=== PATIENT | male | born 2000 | race Caucasian/White ===

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

== ENCOUNTER 2023-10-18 08:49 | Emergency (ER) | payer OTHER ==
[~2023-10-18] VITALS: Ht 175.3 cm; Wt 57.2 kg
[2023-10-18 09:14] LABS: BASOPHILS 0.4 % (0-2); EOSINOPHILS 0.9 % (0-6); HEMATOCRIT 45.8 % (35.0-50.0); HEMOGLOBIN 15.2 g/dL (12.0-18.0); LYMPHOCYTES 12.7 % (24-44); MCH 29.5 (27-36); MCHC 33.2 g/dl (30-36); MONOCYTES 4.8 % (0-12); NEUTROPHILS 81.2 % (39-80); PLATELET COUNT 365 K/uL (140-440); RBC 5.15 M/ul (4.3-5.7); RDW 12.6 (10.5-15.0)
[2023-10-18] MEDS ORDERED: SODIUM CHLORIDE 0.9% 1,000 ML IV PRN (09:15)
[2023-10-18] MEDS ORDERED: ondansetron HCL 4 MG/2 ML VIAL IV ONE (09:15)
[2023-10-18 09:34] LABS: ALBUMIN 4.5 g/dL (3.4-5.0); ALBUMIN/GLOBULIN RATIO 1.41 (1.1-2.4); ANION GAP 16.7 (7-21); BILIRUBIN, TOTAL 1.8 ng/dL (0.2-1.0); BUN/CREATININE RATIO 10.71 (6.0-28.6); CALCIUM 9.4 mg/dL (8.5-10.1); CREATININE, SERUM 1.12 mg/dL (0.70-1.30); MAGNESIUM 1.8 mg/dL (1.8-2.4); POTASSIUM 3.7 mmol/L (3.5-5.1); PROTEIN, TOTAL 7.7 g/dL (6.4-8.2)
[2023-10-18] MEDS ORDERED: CARAFATE1 GM PO (09:35)
[2023-10-18] MEDS ORDERED: OMEPRAZOLE20 MG PO (09:35)
[2023-10-18] MEDS ORDERED: METOCLOPRAMIDE HCL 10 MG/2 ML SDV IV ONE (10:00)
[2023-10-18] MEDS ORDERED: LIDOCAINE & ANTACID 35 ML BTL PO ONE (10:15)
[2023-10-18 10:39] VITALS: BP 117/82
== END 2023-10-18 10:41 | disposition home or self-care (01) ==
LOC: ED 08:49
PROVIDERS: Emergency Medicine
DX: K29.70 Gastritis, unspecified, without bleeding (principal)
CPT/HCPCS: 36415; 80053; 83735; 85025; 96361; 96374; 96375; 99284-25; J2405; J2765; J7030

== ENCOUNTER 2023-10-18 16:02 | Emergency (ER) | payer OTHER ==
[~2023-10-18] VITALS: Ht 175.3 cm; Wt 50.3 kg
[~2023-10-18 16:02] MED LIST: CARAFATE1 GM PO; OMEPRAZOLE20 MG PO
--- OUTSIDE RECORDS SUMMARY | 2023-10-18 16:03 | XMS ---
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 Security Manager Cardiovascular Events No recent Security Events currently on file CRITERIA MET - [facility] [place] [facility] - 2 Visits in 30 Days CARE PROVIDERS -, [facility] Dentist: Electronic Industrial Controls Mechanic [facility] PHONE: [phone] -, Lisa- Dentist: Electronic Industrial Controls Mechanic Current [facility] Dental [facility] PHONE: [phone] WILMAR [facility]: [facility] Health [facility] PHONE: [phone] DANIEL TAYLOR Nurse Practitioner: Family Current PHONE: Unknown Janeen has no Care Guidelines for this patient. [place] VISIT COUNT (12 MO.) 2 TRACI Davis TOTAL 2 NOTE: Visits indicate total known visits. ED/UCC VISIT TRACKING (12 MO.) 10/18/2023 16:02 TRACI Mendez [place] TYPE: Emergency COMPLAINT: - VOMITING 10/18/2023 08:51 TRACI Mendez [place] TYPE: Emergency COMPLAINT: - VOMITING BLOOD INPATIENT VISIT TRACKING (12 MO.) No inpatient visits to display in this time frame [id number]
[2023-10-18] MEDS ORDERED: METOCLOPRAMIDE HCL 10 MG/2 ML SDV IM ONE (16:30)
[2023-10-18] MEDS ORDERED: ondansetron HCL 4 MG TAB PO ONE (16:30)
[2023-10-18] MEDS ORDERED: SODIUM CHLORIDE 0.9% 1,000 ML IV PRN (17:15)
[2023-10-18] MEDS ORDERED: diazePAM 10 MG/2 ML SYR IV ONE (17:15)
[2023-10-18] MEDS ORDERED: ondansetron HCL 4 MG/2 ML VIAL IV ONE (17:15)
[2023-10-18] MEDS ORDERED: HALOPERIDOL LACTATE 5 MG/ML VIAL IV ONE (18:30)
[2023-10-18 19:17] VITALS: BP 102/61
== END 2023-10-18 19:17 | disposition home or self-care (01) ==
LOC: ED 16:02
DX: R11.2 Nausea with vomiting, unspecified (principal); Z79.899 Other long term (current) drug therapy
CPT/HCPCS: 36415; 83690; 96361; 96374; 96375; 99284-25; A9270; J1630; J2405; J2765; J3360; J7030

== ENCOUNTER 2023-11-23 12:58 | Emergency (ER) | payer OTHER ==
[~2023-11-23] VITALS: Ht 175.3 cm; Wt 48.4 kg
[2023-11-23] MEDS ORDERED: ondansetron HCL 4 MG/2 ML VIAL IV ONE (13:15)
[2023-11-23] MEDS ORDERED: SODIUM CHLORIDE 0.9% 1,000 ML IV ONE (13:15)
[2023-11-23 13:47] LABS: ALBUMIN 5.8 g/dL (3.4-5.0); ALBUMIN/GLOBULIN RATIO 1.71 (1.1-2.4); ANION GAP 24.1 (7-21); BILIRUBIN, TOTAL 2.5 ng/dL (0.2-1.0); BUN/CREATININE RATIO 11.18 (6.0-28.6); CALCIUM 11.5 mg/dL (8.5-10.1); CREATININE, SERUM 1.52 mg/dL (0.70-1.30); POTASSIUM 4.1 mmol/L (3.5-5.1); PROTEIN, TOTAL 9.2 g/dL (6.4-8.2)
[2023-11-23 13:48] LABS: MCH 29.6 (27-36); PLATELET COUNT 504 K/uL (140-440); RDW 12.6 (10.5-15.0)
[2023-11-23 13:49] LABS: BASOPHILS 0.2 % (0-2); HEMATOCRIT 50.4 % (35.0-50.0); HEMOGLOBIN 17.2 g/dL (12.0-18.0); MCV 87.1 fl (81-99); MONOCYTES 7.2 % (0-12); NEUTROPHILS 88.6 % (39-80); RBC 5.79 M/ul (4.3-5.7)
[2023-11-23 14:06] LABS: LYMPHOCYTES, MANUAL DIFF 6; MONOCYTES, MANUAL DIFF 9; NEUTROPHILS, MANUAL DIFF 85
[2023-11-23] MEDS ORDERED: droPERidol 5 MG/2 ML VIAL IV ONE (14:30)
[2023-11-23] MEDS ORDERED: SODIUM CHLORIDE 0.9% 1,000 ML IV PRN (14:30)
[2023-11-23 15:46] LABS: BILIRUBIN, URINE NEGATIVE (negative); BLOOD/HGB, URINE NEGATIVE (Negative); KETONE, URINE SMALL (Negative); LEUK ESTERASE, URINE NEGATIVE (negative); NITRITE, URINE NEGATIVE (negative); PH, URINE 8.5 (5-7)
[2023-11-23 16:01] LABS: AMPHETAMINES, URINE NEGATIVE (NEGATIVE); BARBITURATES, URINE NEGATIVE (NEGATIVE); BENZODIAZEPINE, URINE NEGATIVE (NEGATIVE); BUPRENORPHINE, URINE NEGATIVE (NEGATIVE); CANNABINOID, URINE POSITIVE (NEGATIVE); COCAINE, URINE NEGATIVE (NEGATIVE); ECSTASY, URINE NEGATIVE (NEGATIVE); FENTANYL, URINE NEGATIVE (NEGATIVE); METHADONE, URINE NEGATIVE (NEGATIVE); OPIATES, URINE NEGATIVE (NEGATIVE); OXYCODONE, URINE NEGATIVE (NEGATIVE); PHENCYCLIDINE, URINE NEGATIVE (NEGATIVE)
[2023-11-23 16:53] LABS: BASOPHILS 0.1 % (0-2); EOSINOPHILS 0.3 % (0-6); HEMATOCRIT 41.6 % (35.0-50.0); HEMOGLOBIN 14.2 g/dL (12.0-18.0); LYMPHOCYTES 2.2 % (24-44); MCH 29.8 (27-36); MCHC 34.1 g/dl (30-36); MCV 87.5 fl (81-99); MONOCYTES 5.3 % (0-12); NEUTROPHILS 92.1 % (39-80); PLATELET COUNT 295 K/uL (140-440); RBC 4.75 M/ul (4.3-5.7); RDW 12.7 (10.5-15.0)
[2023-11-23] MEDS ORDERED: ONDANSETRON ODT8 MG TL (17:31)
[2023-11-23 17:35] VITALS: BP 119/67
[2023-11-24] MEDS ORDERED: PEPCID20 MG PO (03:32)
== END 2023-11-23 17:35 | disposition home or self-care (01) ==
LOC: ED 12:58
PROVIDERS: Emergency Medicine
DX: R11.2 Nausea with vomiting, unspecified (principal); F12.90 Cannabis use, unspecified, uncomplicated; E86.0 Dehydration; Z79.899 Other long term (current) drug therapy
CPT/HCPCS: 36415; 74176; 80053; 80307; 81003; 83690; 85007; 85025; 85060; 96374; 96375; 99284-25; G0480; J1790; J2405; J7030

== ENCOUNTER 2023-11-24 00:59 | Emergency (ER) | payer OTHER ==
[~2023-11-24] VITALS: Ht 175.3 cm; Wt 49.8 kg
--- OUTSIDE RECORDS SUMMARY | 2023-11-24 01:00 | XMS ---
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 Events No recent Security Events currently on file CRITERIA MET - [facility] - 2 Visits in 30 Days CARE PROVIDERS -, [facility] Dentist: Head Golf Professional [facility] PHONE: [phone] -, Lisa- Dentist: Head Golf Professional Current [facility] Dental [facility] PHONE: [phone] WILMAR [facility]/[place]: [facility] Health [facility] PHONE: [phone] DANIEL TAYLOR Nurse Practitioner: Family Current PHONE: Unknown Janeen has no Care Guidelines for this patient. [place] VISIT COUNT (12 MO.) 4 TRACI Davis TOTAL 4 NOTE: Visits indicate total known visits. ED/UCC VISIT TRACKING (12 MO.) 11/24/2023 00:59 TRACI Mendez [place] TYPE: Emergency COMPLAINT: - VOMITING 11/23/2023 12:58 TRACI [place] Tanya [place] TYPE: Emergency COMPLAINT: - ABDOMINAL PAIN 10/18/2023 16:02 TRACI [place] TYPE: Emergency COMPLAINT: - VOMITING DIAGNOSES: - Nausea with vomiting, unspecified - Other site operations manager (current) drug therapy - Unspecified abdominal pain 10/18/2023 08:51 TRACI [place] Tanya Jones [place] TYPE: Emergency COMPLAINT: - VOMITING BLOOD DIAGNOSES: - Gastritis, unspecified, without bleeding - Hematemesis - Nausea with vomiting, unspecified INPATIENT VISIT TRACKING (12 MO.) No inpatient visits to display in this time frame [id number]
[2023-11-24] MEDS ORDERED: droPERidol 5 MG/2 ML VIAL IV ONE (01:30)
[2023-11-24] MEDS ORDERED: LACTATED RINGER'S 1,000 ML IV ONE ×2 (01:30→02:45)
[2023-11-24] MEDS ORDERED: FAMOTIDINE 20 MG/ 2 ML VIAL IV ONE (01:30)
[2023-11-24 03:45] VITALS: BP 118/72
== END 2023-11-24 03:49 | disposition home or self-care (01) ==
LOC: ED 00:59
DX: R11.2 Nausea with vomiting, unspecified (principal); E86.0 Dehydration
CPT/HCPCS: 96361; 96374; 96375; 99283-25; J1790; J7121

== ENCOUNTER 2023-11-27 15:03 | Emergency (ER) | payer OTHER ==
[~2023-11-27] VITALS: Ht 175.3 cm; Wt 48.2 kg
[~2023-11-27 15:03] MED LIST changes: +ONDANSETRON ODT8 MG TL; +PEPCID20 MG PO
--- OUTSIDE RECORDS SUMMARY | 2023-11-27 15:04 | XMS ---
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 Security Bench Molder Events No recent Security Events currently on file CRITERIA MET - [facility] - 2 Visits in 30 Days CARE PROVIDERS -, [facility] Dentist: Disability Aide [facility] PHONE: [phone] -, Lisa- Dentist: Disability Aide Current [facility] PHONE: [phone] WILMAR [facility]/[place]: [facility] Health [facility] PHONE: [phone] DANIEL TAYLOR Nurse Practitioner: Family Current PHONE: Unknown Janeen has no Care Guidelines for this patient. [place] VISIT COUNT (12 MO.) 5 TRACI Davis TOTAL 5 NOTE: Visits indicate total known visits. ED/UCC VISIT TRACKING (12 MO.) 11/27/2023 15:04 TRACI Mendez [place] TYPE: Emergency COMPLAINT: - EYE PROBLEM 11/24/2023 00:59 TRACI [place] Tanya Jones [place] TYPE: Emergency COMPLAINT: - VOMITING DIAGNOSES: - Dehydration - Nausea with vomiting, unspecified 11/23/2023 12:58 TRACI [place] TYPE: Emergency COMPLAINT: - ABDOMINAL PAIN DIAGNOSES: - Cannabis use, unspecified, uncomplicated - Dehydration - Nausea with vomiting, unspecified - Other termite control representative (current) drug therapy 10/18/2023 16:02 TRACI [place] TYPE: Emergency COMPLAINT: - VOMITING DIAGNOSES: - Nausea with vomiting, unspecified - Other termite control representative (current) drug therapy - Unspecified abdominal pain 10/18/2023 08:51 TRACI [place] TYPE: Emergency COMPLAINT: - VOMITING BLOOD DIAGNOSES: - Gastritis, unspecified, without bleeding - Hematemesis - Nausea with vomiting, unspecified INPATIENT VISIT TRACKING (12 MO.) No inpatient visits to display in this time frame [id number]
[2023-11-27] MEDS ORDERED: VITAMIN B121000 MCG PO (15:25)
[2023-11-27 15:58] LABS: INR 1.04 (0.80-1.30); PROTIME 13.3 Sec (11.2-14.2)
[2023-11-27 16:03] LABS: ALBUMIN 4.1 g/dL (3.4-5.0); ALBUMIN/GLOBULIN RATIO 1.52 (1.1-2.4); ANION GAP 11.7 (7-21); BILIRUBIN, TOTAL 5.5 ng/dL (0.2-1.0); BUN/CREATININE RATIO 14.03 (6.0-28.6); CALCIUM 8.8 mg/dL (8.5-10.1); CREATININE, SERUM 1.14 mg/dL (0.70-1.30); POTASSIUM 3.7 mmol/L (3.5-5.1); PROTEIN, TOTAL 6.8 g/dL (6.4-8.2)
[2023-11-27 16:50] LABS: BILIRUBIN, DIRECT 0.3 mg/dL (0.0-0.2); BILIRUBIN, INDIRECT 5.2 (0.1-0.7); BILIRUBIN, TOTAL 5.5 ng/dL (0.2-1.0)
[2023-11-27 17:53] LABS: BILIRUBIN, URINE NEGATIVE (negative); BLOOD/HGB, URINE NEGATIVE (Negative); KETONE, URINE TRACE (Negative); LEUK ESTERASE, URINE NEGATIVE (negative); NITRITE, URINE NEGATIVE (negative); PH, URINE 6.5 (5-7)
[2023-11-27 18:02] VITALS: BP 116/72
[2023-11-27 18:02] LABS: BACTERIA, URINE NONE SEEN /hpf (negative); CASTS, URINE NONE SEEN \\lpf; COLLECTION TYPE, URINE CLEAN CATCH; CRYSTALS, URINE NONE SEEN (0-1+); EPITHELIAL CELLS, URINE 0 /lpf (0-1+); RED BLOOD CELLS, URINE 0-1 /hpf (0-5); REFLEX CULTURE, URINE No (No); WHITE BLOOD CELLS, URINE 0-1 /HPF (0-5)
== END 2023-11-27 18:01 | disposition home or self-care (01) ==
LOC: ED 15:03
PROVIDERS: Emergency Medicine
DX: E80.6 Other disorders of bilirubin metabolism (principal); Z79.899 Other long term (current) drug therapy
CPT/HCPCS: 36415; 76705; 80048; 80053; 81001; 82247; 82248; 83690; 85610; 99284-25

== ENCOUNTER 2024-08-20 05:55 | Day surgery (SDC) | payer OTHER ==
[2024-08-18 09:46] VITALS: BP 100/52
[~2024-08-20] VITALS: Ht 175.3 cm; Wt 52.3 kg
--- NOTE | ~2024-08-20 | OR ---
[facility] [address] [place], [place] [address] Draft DATE OF OPERATION: 08/20/2024 SURGEON: Hua Hinojosa DO PREOPERATIVE DIAGNOSIS: Refractory gastroesophageal reflux symptoms. POSTOPERATIVE DIAGNOSES: 1. Refractory gastroesophageal reflux symptoms. 2. Erosive esophagitis LA grade B plus. 3. Inflammatory gastritis. PROCEDURE PERFORMED: Esophagogastroduodenoscopy with biopsy of the distal esophagus in four quadrants. ANESTHESIA: IV sedation. ESTIMATED BLOOD LOSS: None. DRAINS: None. COMPLICATIONS: None. DESCRIPTION OF PROCEDURE: The patient was brought to the GI lab, placed in the supine position. After induction of IV sedation through a preanesthetized oropharynx and a bite block, the Olympus video endoscope was introduced through the mouth to the mid esophagus and to distal esophagus. We encountered in the distal esophagus some LA grade B plus esophagitis was noted. No evidence of ulceration is appreciated, but several areas were found to be grossly inflamed with significant esophagitis. Scope was advanced to the stomach, was carried out. Body of the stomach, fundus, pylorus and antrum was essentially unremarkable. Scope was advanced to the pylorus. First and second portion of the duodenum found out to be unremarkable. Scope was retroflexed in the stomach, a small hiatal hernia was appreciated, but is not incarcerated. Scope was then brought back into the distal esophagus. Four-quadrant biopsy was performed at the distal esophagitis and passed off the field. Satisfactory hemostasis was maintained. The stomach was PATIENT NAME: PARMJIT BEGUM OPERATIVE REPORT DATE OF : 02 REPORT #: [id number] PHYSICIAN: HUA HINOJOSA DO PCP: BETH BAILEY PAC REPORT IS CONFIDENTIAL AND NOT TO BE RELEASED WITHOUT AUTHORIZATION [facility] [address] [place], [place] [address] Draft decompressed. Scope was withdrawn in its entirety. The patient tolerated the procedure well and went to recovery room in satisfactory condition. DO DARSHAN Gomez/HILTON /[id number] Copies: ~ PATIENT NAME: PARMJIT BEGUM OPERATIVE REPORT DATE OF : 02 REPORT #: [id number] PHYSICIAN: HUA HINOJOSA DO PCP: BETH BAILEY PAC REPORT IS CONFIDENTIAL AND NOT TO BE RELEASED WITHOUT AUTHORIZATION
[~2024-08-20 05:55] MED LIST changes: +MIDAZOLAM HCL 5 MG/5 ML VIAL IV PRN; +VITAMIN B121000 MCG PO; +fentaNYL citrate 100 MCG/2 ML VIAL IV PRN
[2024-08-20 06:05] VITALS: BP 107/63
[2024-08-20] MEDS ORDERED: fentaNYL citrate 100 MCG/2 ML VIAL ONE (06:57)
[2024-08-20] MEDS ORDERED: IBLOOD GLUCOSE TEST STRIP 1 EA TEST VI PRN (07:00)
[2024-08-20] MEDS ORDERED: LACTATED RINGER'S 1,000 ML IV SCH (07:00)
[2024-08-20] MEDS ORDERED: LIDOCAINE HCL 1% 5 ML SDV INJ ONE (07:00)
[2024-08-20] MEDS ORDERED: propofoL 200 MG/20 ML VIAL ONE (07:08)
[2024-08-20] MEDS ORDERED: LIDOCAINE HCL 2% 5 ML SDV ONE (07:08)
[2024-08-20 07:35] VITALS: BP 112/71
--- NOTE | 2024-08-22 12:49 | PATH ---
[facility] [address] [place], [place] [address] Signed SPECIMEN(S): A DISTAL ESOPHAGEAL BIOPSY SPECIMEN SOURCE: A. DISTAL ESOPHAGEAL BIOPSY CLINICAL HISTORY: GERD/erosive esophagitis, hiatal hernia, gastritis FINAL PATHOLOGIC DIAGNOSIS: Distal esophagus, biopsies: - Chronic reflux esophagogastritis, negative for Garsia's metaplasia. AMB MICROSCOPIC EXAMINATION: Histologic sections of all submitted blocks are examined by light microscopy. These findings, together with the gross examination, support the pathologic diagnosis. GROSS DESCRIPTION: The specimen, labeled and designated "Zeus Bustos, distal esophageal biopsy," is received in formalin and consists of three alvarado soft tissue fragments, ranging from 0.3-0.6 cm. Entirely submitted in (A1). AB (under the direct supervision of a pathologist) The Gross Description was prepared using a voice recognition system. The report was reviewed for accuracy; however, sound-alike word errors, addition and/or deletions may occur. If there is any question about this report, please contact Client Services. ADDITIONAL NOTES: Immunohistochemical and/or in situ hybridization studies if performed in this case included appropriate positive controls that reacted as expected. This test was developed and its performance characteristics determined by [facility]. It has not been cleared or approved by the U.S. Food and Drug Administration. The FDA has determined that such clearance or approval is not necessary. This test is used for clinical purposes. It should not be regarded as investigational or for research. [facility] is certified under the Clinical Laboratory Improvement Amendments of 1988 (CLIA) as qualified to perform high complexity clinical laboratory testing. PATIENT NAME: PARMJIT BEGUM PATHOLOGY DATE OF : 02 REPORT #: [id number] PHYSICIAN: KELLY ALCAZAR PCP: BETH BAILEY PAC REPORT IS CONFIDENTIAL AND NOT TO BE RELEASED WITHOUT AUTHORIZATION [facility] [address] [place] [facility] [place] [address] Signed PERFORMING LABORATORY: Technical component was performed by [facility], [address] [place] [address] (CLIA# [id number]). [facility] [address] [place] [id number] Diagnostician: Lori Davila MD Pathologist Electronically Signed 08/22/2024 Copies: ~ PATIENT NAME: PARMJIT BEGUM PATHOLOGY DATE OF : 02 REPORT #: [id number] PHYSICIAN: KELLY ALCAZAR PCP: BETH BAILEY PAC REPORT IS CONFIDENTIAL AND NOT TO BE RELEASED WITHOUT AUTHORIZATION
== END 2024-08-20 07:42 | disposition home or self-care (01) ==
LOC: DS 05:55 → OPS 05:55 → DS 07:30 → OPS 07:42
PROVIDERS: ATTEND Surgery
PROC: 0DB38ZX Excision of Lower Esophagus, Via Natural or Artificial Opening Endoscopic, Diagnostic (ICD-10-PCS; principal; 2024-08-20 07:30)
DX: K21.00 Gastro-esophageal reflux disease with esophagitis, without bleeding (principal); K29.70 Gastritis, unspecified, without bleeding; K44.9 Diaphragmatic hernia without obstruction or gangrene; Z79.899 Other long term (current) drug therapy
CPT/HCPCS: 00731; J2003; J2704; J3010; J7121

== ENCOUNTER 2024-11-01 20:16 | Inpatient (IN) | payer OTHER ==
[~2024-11-01] VITALS: Ht 175.3 cm; Wt 46.2 kg
[~2024-11-01 20:16] MED LIST changes: -MIDAZOLAM HCL 5 MG/5 ML VIAL IV PRN; +PANTOPRAZOLE SO40 MG PO; +REGLAN10 MG PO; -fentaNYL citrate 100 MCG/2 ML VIAL IV PRN
[2024-11-01] MEDS ORDERED: MORPHINE SULFATE 4 MG/ML VIAL IV ONE (20:45)
[2024-11-01] MEDS ORDERED: SODIUM CHLORIDE 0.9% 1,000 ML IV ONE ×2 (20:45→22:30)
[2024-11-01 20:47] LABS: BASOPHILS 0.3 % (0.2-1.2); EOSINOPHILS 0 % (0.8-7.0); LYMPHOCYTES 4.2 % (21.8-53.1); MCH 29.7 PG (25.7-32.2); MCHC 34.5 g/dL (32.3-36.5); MCV 86.0 fL (79.0-92.2); MONOCYTES 6.9 % (5.3-12.2); NEUTROPHILS 88.1 % (34.0-67.9); RBC 5.80 M/uL (4.63-6.08)
[2024-11-01 21:35] LABS: ALT (SGPT) 29.0 U/L (14-59); AST (SGOT) 23.0 U/L (15-37); GLOMERULAR FILTRATION RATE,EST 70.0 mL/min (>60); PROTEIN, TOTAL 9.0 g/dL (6.4-8.2); UREA NITROGEN 36.0 mg/dL (7-18)
[2024-11-01] MEDS ORDERED: PIPERACILLIN/TAZOBACTAM 4.5 GM in SODIUM CHLORIDE 0.9% 100 ML IV ONE (22:30)
[2024-11-01] MEDS ORDERED: PANTOPRAZOLE SODIUM 40 MG/10 ML VIAL IV ONE (22:30)
[2024-11-02] VITALS (8 sets, daily range): BP systolic 108–116; BP diastolic 53–65
[2024-11-02] MEDS ORDERED: NICOTINE 14 MG/24 HR 1 EA TDSY TD ONE (00:15)
[2024-11-02 01:06] LABS: BLOOD/HGB, URINE TRACE-I (Negative); KETONE, URINE NEGATIVE (Negative); LEUK ESTERASE, URINE NEGATIVE (negative); NITRITE, URINE NEGATIVE (negative)
[2024-11-02] MEDS ORDERED: DIATRIZOATE MEGLU/DIATRIZO SOD 15 ML BTL PO ONE (01:15)
[2024-11-02 01:22] LABS: BACTERIA, URINE NONE SEEN /hpf (negative); CASTS, URINE NONE SEEN \\lpf; CRYSTALS, URINE NONE SEEN (0-1+); EPITHELIAL CELLS, URINE NONE SEEN /lpf (0-1+); REFLEX CULTURE, URINE No (No)
[2024-11-02] MEDS ORDERED: LORazepam 2 MG/ML VIAL IV ONE (01:30)
[2024-11-02 03:44] LABS: AMPHETAMINES, URINE NEGATIVE (NEGATIVE); BARBITURATES, URINE NEGATIVE (NEGATIVE); BENZODIAZEPINE, URINE NEGATIVE (NEGATIVE); CANNABINOID, URINE POSITIVE (NEGATIVE); COCAINE, URINE NEGATIVE (NEGATIVE); ECSTASY, URINE NEGATIVE (NEGATIVE); FENTANYL, URINE NEGATIVE (NEGATIVE); METHADONE, URINE NEGATIVE (NEGATIVE); OPIATES, URINE POSITIVE (NEGATIVE); OXYCODONE, URINE NEGATIVE (NEGATIVE); PHENCYCLIDINE, URINE NEGATIVE (NEGATIVE)
[2024-11-02] MEDS ORDERED: PROCHLORPERAZINE EDISYLATE 10 MG/2 ML VIAL IV PRN ×2 (03:45→09:30)
[2024-11-02] MEDS ORDERED: ACETAMINOPHEN 325 MG TAB PO PRN (03:45)
[2024-11-02] MEDS ORDERED: MORPHINE SULFATE 4 MG/ML VIAL IV PRN (03:45)
[2024-11-02] MEDS ORDERED: KETOROLAC TROMETHAMINE 15 MG/ML VIAL IV PRN ×2 (03:45→09:30)
[2024-11-02] MEDS ORDERED: DEXTROSE 5% - LACTATED RINGERS 1,000 ML IV SCH ×2 (03:45→09:30)
[2024-11-02 05:22] LABS: BASOPHILS 0.3 % (0.2-1.2); EOSINOPHILS 0 % (0.8-7.0); LYMPHOCYTES 9.3 % (21.8-53.1); MCH 30.4 PG (25.7-32.2); MCHC 33.7 g/dL (32.3-36.5); MCV 90.2 fL (79.0-92.2); MONOCYTES 7.7 % (5.3-12.2); NEUTROPHILS 82.3 % (34.0-67.9); RBC 4.41 M/uL (4.63-6.08)
[2024-11-02 05:38] LABS: ALT (SGPT) 22.0 U/L (14-59); AST (SGOT) 16.0 U/L (15-37); GLOMERULAR FILTRATION RATE,EST 97.0 mL/min (>60); PROTEIN, TOTAL 6.3 g/dL (6.4-8.2); UREA NITROGEN 22.0 mg/dL (7-18)
[2024-11-02] MEDS ORDERED: PIPERACILLIN/TAZOBACTAM 4.5 GM in SODIUM CHLORIDE 0.9% 100 ML IV SCH ×2 (06:00→14:00)
--- NOTE | 2024-11-02 06:15 | NUR ---
resting, on room air, awakens easily, no c/o n/v or pain. bedside cpox in place. tele#[address] SR[address] IVf infusing w/o problems. pt is NPO. tolerating well, no void since admit but had voided in er prior to admit. urinal at bedside. Mother rooming in
--- NOTE | 2024-11-02 06:45 | NUR ---
resting, awakes easily, on room air, bedside cpox . no c/o abd pain or n/v. oral swabs at bedside, tele#9 in plce
--- NOTE | 2024-11-02 07:23 | NUR ---
Pt report received from MARK Mandel. Pt is resting supine in bed, eyes closed, family in room. White board updated. Call light in reach. Pt's grandmother expressed concern that the pt took off his oxygen. Advised her that he is wearing a cpox and that it will alarm me if his sats decrease. She verbalized understanding.
[2024-11-02] MEDS ORDERED: ONDANSETRON ODT8 MG PO (07:57)
[2024-11-02] MEDS ORDERED: PANTOPRAZOLE SODIUM 40 MG/10 ML VIAL IV SCH ×2 (09:00→21:00)
[2024-11-02] MEDS ORDERED: NICOTINE 21 MG/24 HR 1 EA TDSY TD SCH (09:26)
[2024-11-02] MEDS ORDERED: LORazepam 2 MG/ML VIAL IV PRN (09:30)
--- NOTE | 2024-11-02 10:16 | NUR ---
Pt getting up to the shower while IVF running (protecting IV site, and pump outside shower curtain). Updated pt on POC, pt verbalized understanding. Denies nausea at this time. Family member in room, SCD's set up for after the shower.
--- NOTE | 2024-11-02 10:52 | NUR ---
LINENE CHANGE WHILE PT IN SHOWER. AFTER SHOWER TWO WARM BLANKETS FOR WARMTH. HOOKED EVERYTHING BACK UP, NURSE IN WITH PT. CLEANED UP ROOM AND SHOWER, CALL LIGHT WITHIN REACH OF PT. VISITOR LEFT, BUT SAID SHE WOULD RETURN.
[2024-11-02] MEDS ORDERED: PHARMACY RENAL DOSE ADJUSTMENT 1 DOSE MISC PO SCH (12:00)
--- NOTE | 2024-11-02 14:02 | NUR ---
PT FEELING ANXIOUS, ASKED THIS EMAIL CAMPAIGN SPECIALIST TO GET RN - I DID GET HIS RN. PT NOW RESTING AFTER HIS SECOND SHOWER TO TRY AND RELAX. HE IS NOW RELAXING. PT HAS TWO VISITORS CURRENTLY. CALL LIGHT WITHIN REACH - PT NPO.
--- NOTE | 2024-11-02 14:55 | NUR ---
MED REC COMPLETE
--- NOTE | 2024-11-02 17:57 | NUR ---
Pt's mother requested updates on pt's care. Pt is currently in the shower. She advises that pt has anxiety, drinks, smokes, and smokes marijuana, and thinks that those things are not what caused his issues now, so he refuses to try to do better. She states that when we leave the room, the pt starts to complain to her that he wants to leave and go home. The pt has had 3 showers today to help with nausea and anxiety as they seem to help with both. He has stated he is anxious one time this shift, and has asked for anti emetics twice. Otherwise, he has been napping/sleeping for the majority of the shift. I was able to encourage him to ambulate the short martínez one time, then he went back to the room and took another shower. Pt's mother stated that there will be someone (family member) in his room the entire time he is here, but agreed to step out for a brief period of time to see if staff speaking with him about communicating his needs directly with them will help.
--- NOTE | 2024-11-02 18:15 | NUR ---
In with pt for evening assessment. Pt had just gotten back in bed from his shower. I was able to have a discussion with the pt about what triggers his anxiety. Pt advised that being in one place, in one room, for long periods of time makes him anxious. He agrees to ambulate the hallways. Pt was s/l for ease of movement and to reduce anxiety triggers and provided with a warm blanket. When pt got to the hallway leading to the front of the hospital, I was able to obtain permission from the electrician deck to walk with the pt down to the patio for some fresh air. The pt states that this was extremely helpful for his anxiety. pt was provided with an algerian ice popsicle before I remembered he was to have nothing by mouth; however, the pt had no c/o upset stomach or nausea. I advised Dr. Mata that I provided him with a popsicle. No orders received from Dr. Mata in response to this. Pt is currently still ambulating the hallways (1930 hours). Pt report provided to MARK Mandel who is taking over his care for submarine cable equipment technician. Also, okay per Dr. Mata to provide the pt with a new nicotine patch as the previous one came off after showering multiple times this shift.
--- NOTE | 2024-11-02 18:51 | NUR ---
PT TOOK ANOTHER SHOWER. NEEDED WARM BLANKETS FOLLOWING THE SHOWER. PT'S MOTHER WAS VISITING, HE TOOK A WALK. PT'S NICOTINE PATCH CAME OFF, THIS COMMUNITY DIETITIAN TOOK IT TO PT'S NURSE. PT REQUESTED A NEW PATCH, COMMUNITY DIETITIAN ASKED NURSE. CALL LIGHT WITHIN REACH. PT ALL HOOKED UP FOLLOWING SHOWER. PT WATCHING TV.
--- NOTE | 2024-11-02 19:54 | NUR ---
AMBULATED HALLWAYS UP AND DOWN SEVERAL TIMES THIS SHIFT. BACK TO ROOM. ON ROOM AIR. CPOX AT BEDSIDE. IVF INFUSING LA. NO C/O N/V BUT C/O ABD PAIN, MEDICATED WITH TORADOL 15MG IV. REQUESTING NICOTINE PATCH BACK IT FELL OFF WHEN SHOWERING. APPLIED TO R CHEST. TELE#[address] SR TO SVR W SVPB'S, PULSE 60-82. NO SOB NOTED WITH EXERTION. VOIDED, REPOSITIONS SELF, NPO DOES OWN ORAL CARE. RT IN ROOM TALKING TO PT ABOUT SMOKE CESSATION. VISITING WITH FAMILY.
--- NOTE | 2024-11-02 20:18 | NUR ---
PARMJIT IS AWAKE ON ROOM AIR IN GOOD SPIRITS. RT PROVIDED PARMJIT WITH A QUIT SMOKING PAMPHLET FOR HIM TO OBTAIN NICOTINE PATCHES TO QUIT SMOKING.
--- NOTE | 2024-11-02 21:17 | EKG ---
[facility] [address] [facility] [place] [address] Signed Normal sinus rhythm with sinus arrhythmia Rightward axis Borderline ECG No previous ECGs available Confirmed by Matt Paul MD () on 11/02/2024 9:17:39 PM Electronically Signed By: MATT PAUL MD 11/02/242116 PATIENT NAME: PARMJIT BEGUMNTIN Electrocardiogram DATE OF : 02 PHYSICIAN: MATT PAUL MD REPORT #: [id number] REPORT IS CONFIDENTIAL AND NOT TO BE RELEASED WITHOUT AUTHORIZATION
--- NOTE | 2024-11-02 22:17 | NUR ---
RESTING, EYES CLOSED, ON ROOM AIR, CPOX ON AT BEDSIDE, IVF INFUSING. AWAKENS EASILY. WAS C/O FEELING ANXIOUS EARLIER, REASSURED, CALMER. MOTHER ROOMING IN
--- NOTE | 2024-11-02 23:41 | NUR ---
AWAKENS EASILY, ON ROOM AIR, CPOX ON AT BEDSIDE, SATS 97%. TELE#[address], RHYTHM SVB WITH SVPB'S, IRREGULAR RATE PULSE 44-88, DENIES C/O PAIN OR SOB.IVF INFUSING W/O PROBLEMS, TURNS AND REPOSITIONS SELF. C/O INCREASED ANXIETY MEDICATED WITH ATIVAN 0.5MG IV. MOTHER IN ROOM
[2024-11-03] VITALS (8 sets, daily range): BP systolic 105–141; BP diastolic 54–81
--- NOTE | 2024-11-03 01:46 | NUR ---
RESTING, EYES CLOSED. ON ROOM AIR, AWAKENS EASILY. NO C/O PAIN OR N/V. TELE#[address] SV BARADY, HR BETWEEN 40-72 IRREGULAR, DENIES CP/SOB. COOPERATIVE WITH VITALS AND ASSESSMENTS. SCDS TAKEN OFF AT THIS TIME.
--- NOTE | 2024-11-03 03:08 | NUR ---
pT USED CALL LIGHT. C/O INCONTINENCE IN BED. WANTS TO SHOWER. HAS SHOWERED EARLIER THIS SHIFT TOO. TELE#9 SB. PT DENIES FEELING LIGHTHEADNESS OR CP. TOTAL BED LINEN DONE
--- NOTE | 2024-11-03 03:31 | NUR ---
PARMJIT WAS TAKING A SHOWER. RT DC'ED CPOX ORDER PARMJIT DOES NOT NEED A CPOX, HE DOES NOT DESATURATE.
--- NOTE | 2024-11-03 03:45 | NUR ---
On room air, cpox dc'd at this time, sats were 100%. tele#[address], SB HR 57 at this time. Lungs dim at bases, no sob with exertion. Showered for about 30 minutes, stated he was incontinent of urine and liquid bm. Did own care. IVF infusing w/o problems. c/o abd pain, medicated with Toradol 15mg IV. SCD's back in place
[2024-11-03 05:28] LABS: BASOPHILS 0.6 % (0.2-1.2); EOSINOPHILS 1.1 % (0.8-7.0); LYMPHOCYTES 18.2 % (21.8-53.1); MCH 30.1 PG (25.7-32.2); MCHC 32.8 g/dL (32.3-36.5); MCV 91.7 fL (79.0-92.2); MONOCYTES 7.8 % (5.3-12.2); NEUTROPHILS 72.1 % (34.0-67.9); RBC 4.12 M/uL (4.63-6.08)
--- NOTE | 2024-11-03 05:47 | NUR ---
RESTING, EYES CLOSED, ON ROOM AIR, NO S/SX DISTRESS. IVF INFUSING W/O PROBLEMS. TELE#[address] SINUS DEMI, HR 47. TURNS AND REPOSITIONS SELF IN BED. NO N/V THIS SHIFT. MOTHER ROOMING IN
[2024-11-03 05:48] LABS: ALT (SGPT) 18.0 U/L (14-59); AST (SGOT) 14.0 U/L (15-37); GLOMERULAR FILTRATION RATE,EST 104.0 mL/min (>60); PHOSPHORUS, INORGANIC 3.6 mg/dL (2.5-4.9); PROTEIN, TOTAL 5.8 g/dL (6.4-8.2); UREA NITROGEN 13.0 mg/dL (7-18)
--- NOTE | 2024-11-03 07:00 | NUR ---
PATIENT CALLED. HE TOLD THIS DUAL RATE SUPERVISOR HE HAD A BOWEL MOVEMENT BUT HE FLUSHED. HE C/O OF STOMACH CRAMPING. STATED FOR SURE THERE WILL BE MORE BM. PRIMARY RN MEHDI NOTIFIED.
--- NOTE | 2024-11-03 07:15 | NUR ---
Pt report received from MARK Herring. Pt is resting in bed, HOB elevated, A&O, reports he had a BM in the toilet and left it for us. Pt is requesting to take another shower. Encouraged him to wait until an aide can come in and set him up as we are in the middle of shift report. He verbalized understanding. Call light in reach. Pt's mom in room.
--- NOTE | 2024-11-03 08:44 | NUR ---
PATIENT TOOK A SHOWER THIS MORING. BED LINENS CHANGED. FAMILY IN ROOM.
--- NOTE | 2024-11-03 10:43 | NUR ---
UR CLINICAL REVIEW: MCG-PER MCG REVIEW MEETS INPT FOR GASTRO GRG WITH NOTED PNEUMOMEDIASTEINUM WITH NEED FOR BOWEL REST, IVF, IV MEDICATIONS [facility] INPT 11/02/24 @ 0928 ORDER MATCHES REG RECORDS FAXED TO [facility] FOR AUTH REVIEW DISCHARGE TO HOME WHEN STABLE 11/04/24 DC ASSESSMENT
--- NOTE | 2024-11-03 11:40 | NUR ---
Spoke with Pedro and his mom and dad. 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 Per pt and family for the last several months pt has vomiting episodes. Mom is very concerned as feels they have had a lot of issues getting into specialist. I let her know, Guilherme has hired several new specialist and she could check with them. There has been a shorter wait. She is wanting pt to go to cardiology. Pt denies use of any DME. He denies financial or safety concerns. He plans on possible dc today to home. He is waiting to see the hospitalist. Pt is concerned about eating at this time. Reassured will be in as soon as possible. They deny needs from CM.
--- NOTE | 2024-11-03 11:57 | NUR ---
Pt out for a walk with bella Walker. S/L at this time, Tele on, pt pulse in the 60s. Pt's grandma with them.
[2024-11-03] MEDS ORDERED: HYDROXYZINE HCL25 MG PO (15:10)
== END 2024-11-03 15:55 | disposition home or self-care (01) | DRG 199 ==
LOC: ED 20:16 → MS 20:17
PROVIDERS: Family Medicine; ADMIT Family Medicine; ATTEND Family Medicine
DX: J98.2 Interstitial emphysema (principal); E43 Unspecified severe protein-calorie malnutrition; Z68.1 Body mass index [BMI] 19.9 or less, adult; F41.9 Anxiety disorder, unspecified; F12.90 Cannabis use, unspecified, uncomplicated; F10.90 Alcohol use, unspecified, uncomplicated; E80.6 Other disorders of bilirubin metabolism; I49.9 Cardiac arrhythmia, unspecified; K21.9 Gastro-esophageal reflux disease without esophagitis; D72.829 Elevated white blood cell count, unspecified; K52.9 Noninfective gastroenteritis and colitis, unspecified; Z72.0 Tobacco use
CPT/HCPCS: 36415; 71250; 71260; 74177; 80053; 80307; 81001; 82248; 83690; 83735; 84100; 85025; 85060; 93005; 93010; 94762; 94799; 96366; 96375; 96376; 99406; G0378; J0780; J1790; J1885; J2060; J2270; J2405; J2470; J2543; J7030; J7121; Q9967

== ENCOUNTER 2024-12-20 03:02 | Observation (INO) | payer OTHER ==
[~2024-12-20] VITALS: Ht 175.3 cm; Wt 51.1 kg
[~2024-12-20 03:02] MED LIST changes: +HYDROXYZINE HCL25 MG PO; +ONDANSETRON ODT8 MG PO
[2024-12-20] MEDS ORDERED: FAMOTIDINE 20 MG/ 2 ML VIAL IV ONE (03:30)
[2024-12-20] MEDS ORDERED: LACTATED RINGER'S 1,000 ML IV ONE ×2 (03:30→06:15)
[2024-12-20 03:32] LABS: BASOPHILS 0.2 % (0.2-1.2); EOSINOPHILS 0.1 % (0.8-7.0); LYMPHOCYTES 4.7 % (21.8-53.1); MCH 29.4 PG (25.7-32.2); MCHC 35.0 g/dL (32.3-36.5); MCV 84.0 fL (79.0-92.2); MONOCYTES 4.7 % (5.3-12.2); NEUTROPHILS 89.9 % (34.0-67.9); RBC 5.61 M/uL (4.63-6.08)
[2024-12-20] MEDS ORDERED: LORazepam 2 MG/ML VIAL IV ONE (03:45)
[2024-12-20 03:47] LABS: ALT (SGPT) 28.0 U/L (14-59); AST (SGOT) 22.0 U/L (15-37); GLOMERULAR FILTRATION RATE,EST 73.0 mL/min (>60); PROTEIN, TOTAL 8.4 g/dL (6.4-8.2); UREA NITROGEN 18.0 mg/dL (7-18)
[2024-12-20 04:10] LABS: ABO O; ANTIBODY SCREEN NEGATIVE; RH POSITIVE
[2024-12-20] MEDS ORDERED: PANTOPRAZOLE SODIUM 40 MG/10 ML VIAL IV ONE (04:15)
[2024-12-20] MEDS ORDERED: AMP/SULBACTAM SOD 3 GM in SODIUM CHLORIDE 0.9% 100 ML IV ONE (04:15)
[2024-12-20 04:43] LABS: LACTIC ACID, BLOOD 3.9 mmol/L (0.4-2.0)
[2024-12-20] MEDS ORDERED: CAPSAICIN 0.1% 56.6 GM TUBE TOP ONE (06:30)
[2024-12-20 08:04] LABS: BLOOD/HGB, URINE TRACE-I (Negative); KETONE, URINE TRACE (Negative); LEUK ESTERASE, URINE NEGATIVE (negative); NITRITE, URINE NEGATIVE (negative)
[2024-12-20 08:09] LABS: BACTERIA, URINE NONE SEEN /hpf (negative); CASTS, URINE NONE SEEN \\lpf; CRYSTALS, URINE NONE SEEN (0-1+); EPITHELIAL CELLS, URINE SQUAMOUS 1+ /lpf (0-1+); REFLEX CULTURE, URINE No (No)
[2024-12-20 08:23] LABS: AMPHETAMINES, URINE NEGATIVE (NEGATIVE); BARBITURATES, URINE NEGATIVE (NEGATIVE); BENZODIAZEPINE, URINE NEGATIVE (NEGATIVE); CANNABINOID, URINE POSITIVE (NEGATIVE); COCAINE, URINE NEGATIVE (NEGATIVE); ECSTASY, URINE NEGATIVE (NEGATIVE); FENTANYL, URINE NEGATIVE (NEGATIVE); METHADONE, URINE NEGATIVE (NEGATIVE); OPIATES, URINE NEGATIVE (NEGATIVE); OXYCODONE, URINE NEGATIVE (NEGATIVE); PHENCYCLIDINE, URINE NEGATIVE (NEGATIVE)
[2024-12-20] MEDS ORDERED: PROCHLORPERAZINE EDISYLATE 10 MG/2 ML VIAL IV PRN (08:30)
[2024-12-20] MEDS ORDERED: LACTATED RINGER'S 1,000 ML IV SCH (08:30)
[2024-12-20] MEDS ORDERED: ACETAMINOPHEN 325 MG TAB PO PRN (08:30)
[2024-12-20] MEDS ORDERED: CAPSAICIN 0.1% 56.6 GM TUBE TOP SCH (09:00)
--- NOTE | 2024-12-20 09:15 | NUR ---
REPORT RECIEVED FROM MARK DOLL. PATIENT TRANSFERED FROM ED ROOM 2 TO MS ROOM 115 VIA WHEELCHAIR.
[2024-12-20 09:22] VITALS: BP 124/57
--- NOTE | 2024-12-20 10:00 | NUR ---
PATIENT ADMISSION COMPLETED. PATIENT RESTING IN BED WITH HIS MOM AT BEDSIDE. NO FURTHER NEEDS AT THIS TIME. CALL LIGHT AND PERSONAL BELONGINGS ARE WITHIN REACH.
--- NOTE | 2024-12-20 11:25 | NUR ---
PATIENT IV FLUSHED WITH 10 ML OF NS AND IS SALINE LOCKED FOR PATIENT TO HAVE SHOWER. PATIENT DENIES ANY PAIN OR NAUSEA AT THIS TIME AND STATES "I FEEL FINE AND READY TO GO HOME". CHINA ELLIOTT AT BEDSIDE SETTING PATIENT UP WITH SHOWER. CALL LIGHT AND PERSONAL BELONGINGS ARE WITHIN REACH.
[2024-12-20] MEDS ORDERED: PHARMACY RENAL DOSE ADJUSTMENT 1 DOSE MISC PO SCH (12:00)
--- NOTE | 2024-12-20 12:40 | NUR ---
PATIENT SITTING UP AT EDGE OF BED. PATIENT MEDICATED PER EMAR. FRESH ICE WATER PROVIDED. PATIENT IS WITHOUT FURTHER NEEDS AT THIS TIME. CALL LIGHT AND PERSONAL BELONGINGS ARE WITHIN REACH.
[2024-12-20 12:53] LABS: GLOMERULAR FILTRATION RATE,EST 110.0 mL/min (>60); UREA NITROGEN 15.0 mg/dL (7-18)
[2024-12-20] MEDS ORDERED: BUSPIRONE HCL5 MG PO (13:30)
[2024-12-20] MEDS ORDERED: HYDROXYZINE HCL25 MG PO (13:31)
[2024-12-20] MEDS ORDERED: CAPSAICIN42.5 GM TOP (13:32)
[2024-12-20 13:49] VITALS: BP 116/65
--- NOTE | 2024-12-20 13:50 | NUR ---
PATIENT IV REMOVED. CATH TIP INTACT. PRESSURE DRESSING OF GAUZE AND COBAN APPLIED. PATIENT EDUCATED TO LEAVE PRESSURE DRESSING ON FOR AT LEAST 30 MINS. LET PATIENT KNOW STAFF IS WORKING ON DISCHARGE PAPERWORK AND WILL BE BACK FOR DISCHARGE INSTRUCTIONS REVIEW. PATIENT WITH VERBAL UNDERSTANDING.
[2024-12-20] MEDS ORDERED: MELATONIN 3 MG TAB PO PRN (21:00)
--- NOTE | 2024-12-21 14:17 | EKG ---
[facility] [address] [facility] [place] [address] Signed Normal sinus rhythm with sinus arrhythmia Rightward axis Incomplete right bundle branch block Prolonged QT Abnormal ECG When compared with ECG of 02-NOV-2024 02:54, Incomplete right bundle branch block is now present Nonspecific T wave abnormality no longer evident in Inferior leads QT has lengthened Confirmed by Isaiah Tirado DO ([id number]) on 12/21/2024 2:16:56 PM Electronically Signed By: ISAIAH TIRADO DO 12/21/24 1417 PATIENT NAME: PARMJIT BEGUMNTIN Electrocardiogram DATE OF : 02 PHYSICIAN: ISAIAH TIRADO DO REPORT #: [id number] REPORT IS CONFIDENTIAL AND NOT TO BE RELEASED WITHOUT AUTHORIZATION
== END 2024-12-20 14:00 | disposition home or self-care (01) ==
LOC: ED 03:02 → MS 03:03
PROVIDERS: Internal Medicine; ADMIT Student in an Organized Health Care Education/Training Program; ATTEND Student in an Organized Health Care Education/Training Program
DX: R11.2 Nausea with vomiting, unspecified (principal); F12.90 Cannabis use, unspecified, uncomplicated; K22.10 Ulcer of esophagus without bleeding; J98.2 Interstitial emphysema; N17.9 Acute kidney failure, unspecified; E87.20 Acidosis, unspecified; D72.829 Elevated white blood cell count, unspecified; F41.1 Generalized anxiety disorder; K92.1 Melena
CPT/HCPCS: 36415; 51798; 71260; 74177; 80048; 80053; 80307; 81001; 83605; 83690; 85025; 86850; 86900; 86901; 87040; 93005; 93010; 96361; 96365; 96375; 99285-25; G0378; G0480; J0295; J1790; J2060; J2470; J7121; Q9967

== ENCOUNTER 2025-04-07 02:05 | Emergency (ER) | payer OTHER ==
[~2025-04-07] VITALS: Ht 175.3 cm; Wt 51.1 kg
[~2025-04-07 02:05] MED LIST changes: +BUSPIRONE HCL5 MG PO; +CAPSAICIN42.5 GM TOP
--- OUTSIDE RECORDS SUMMARY | 2025-04-07 02:11 | XMS ---
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 Security Quality Control Expert Events No recent Security Events currently on file CRITERIA MET - [facility] - 2 Visits in 30 Days CARE PROVIDERS -, [facility] Dentist: Automatic Pattern Edger [facility] PHONE: [phone] -, Lisa- Dentist: Automatic Pattern Edger [facility] PHONE: [phone] DANIEL TAYLOR Nurse Practitioner: Family Current PHONE: [phone] LACIE COTTER Family Medicine [facility] PHONE: [phone] Janeen has no Care Guidelines for this patient. [place] VISIT COUNT (12 MO.) 4 TRACI Davis 2 [facility] TOTAL 6 NOTE: Visits indicate total known visits. ED/UCC VISIT TRACKING (12 MO.) 04/07/2025 02:05 TRACI Mendez [place] TYPE: Emergency COMPLAINT: - VOMITING 04/06/2025 16:31 [facility] [place] TYPE: Emergency DIAGNOSES: - Cannabis hyperemesis syndrome - vomiting 02/25/2025 18:44 [facility] [place] TYPE: Emergency DIAGNOSES: - Cyclical vomiting syndrome unrelated to migraine - GENERAL 12/20/2024 03:02 TRACI Mendez [place] TYPE: Emergency COMPLAINT: - VOMITING 11/01/2024 20:16 TRACI Mendez [place] TYPE: Emergency COMPLAINT: - VOMITING 09/09/2024 16:18 TRACI Mendez [place] TYPE: Emergency COMPLAINT: - VOMITING DIAGNOSES: - Gastro-esophageal reflux disease without esophagitis - Nausea with vomiting, unspecified - Other buttermilk drier operator (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) drug therapy INPATIENT VISIT TRACKING (12 MO.) 12/20/2024 03:03 TRACI Mendez [place] TYPE: Observation COMPLAINT: - CANNABINOID HYPEREMESIS SYNDROME DIAGNOSES: - Acidosis, unspecified - Acute kidney failure, unspecified - Cannabis use, unspecified, uncomplicated - Elevated white blood cell count, unspecified - Generalized anxiety disorder - Interstitial emphysema - Melena - Nausea with vomiting, unspecified - Ulcer of esophagus without bleeding 11/02/2024 09:28 TRACI Mendez [place] TYPE: Medical Surgical COMPLAINT: - PNEUMOMEDIASTEINUM, GASTROENTERITIS DIAGNOSES: - Alcohol use, unspecified, uncomplicated - Anxiety disorder, unspecified - Body mass index [BMI] 19.9 or less, adult - Cannabis use, unspecified, uncomplicated - Cardiac arrhythmia, unspecified - Elevated white blood cell count, unspecified - Gastro-esophageal reflux disease without esophagitis - Interstitial emphysema - Noninfective gastroenteritis and colitis, unspecified - Other disorders of bilirubin metabolism - Tobacco use - Unspecified severe protein-calorie malnutrition [id number]
[2025-04-07] MEDS ORDERED: DICYCLOMINE HCL 20 MG/2 ML VIAL IM ONE (02:15)
[2025-04-07] MEDS ORDERED: LACTATED RINGER'S 1,000 ML IV ONE (02:15)
[2025-04-07] MEDS ORDERED: KETOROLAC TROMETHAMINE 30 MG/ML VIAL IV ONE (02:15)
[2025-04-07 02:36] LABS: BASOPHILS 0.2 % (0.2-1.2); EOSINOPHILS 0 % (0.8-7.0); LYMPHOCYTES 5.4 % (21.8-53.1); MCH 29.9 PG (25.7-32.2); MCHC 35.5 g/dL (32.3-36.5); MCV 84.1 fL (79.0-92.2); MONOCYTES 4.9 % (5.3-12.2); NEUTROPHILS 89.1 % (34.0-67.9); RBC 5.22 M/uL (4.63-6.08)
[2025-04-07 02:47] LABS: SMEAR REVIEW BLOOD SEE COMMENTS
[2025-04-07 02:57] LABS: ALT (SGPT) 27.0 U/L (14-59); AST (SGOT) 25.0 U/L (15-37); GLOMERULAR FILTRATION RATE,EST 74.0 mL/min (>60); PROTEIN, TOTAL 8.6 g/dL (6.4-8.2); UREA NITROGEN 12.0 mg/dL (7-18)
[2025-04-07] MEDS ORDERED: PROMETHAZINE HCL 25 MG SUPP. HOME.PACK PR ONE (03:30)
[2025-04-07] MEDS ORDERED: ONDANSETRON ODT8 MG PO (03:33)
[2025-04-07] MEDS ORDERED: PROMETHEGAN25 MG PR (03:33)
[2025-04-07] MEDS ORDERED: ONDANSETRON 4 MG HOME.PACK SL ONE (03:45)
[2025-04-07 04:00] VITALS: BP 129/74
[2025-04-07] MEDS ORDERED: LEVSIN-SL0.125 MG SL (23:57)
[2025-04-07] MEDS ORDERED: REGLAN10 MG PO (23:57)
[2025-04-08] MEDS ORDERED: HALOPERIDOL2 MG PO (22:11)
[2025-04-08] MEDS ORDERED: CARAFATE1 GM PO (22:21)
[2025-04-11] MEDS ORDERED: ONDANSETRON ODT8 MG PO (08:01)
== END 2025-04-07 04:02 | disposition home or self-care (01) ==
LOC: ED 02:05
PROVIDERS: Family Medicine
DX: R11.15 Cyclical vomiting syndrome unrelated to migraine (principal); R10.13 Epigastric pain; K21.9 Gastro-esophageal reflux disease without esophagitis; Z79.899 Other long term (current) drug therapy
CPT/HCPCS: 36415; 80053; 83690; 83735; 85025; 85060; 96361; 96374; 96375; 99284-25; A9270; J1200; J1790; J1885; J7121

== ENCOUNTER 2025-04-07 20:31 | Emergency (ER) | payer OTHER ==
[~2025-04-07] VITALS: Ht 175.3 cm; Wt 51.1 kg
[~2025-04-07 20:31] MED LIST changes: +PROMETHEGAN25 MG PR
--- OUTSIDE RECORDS SUMMARY | 2025-04-07 20:38 | XMS ---
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 [place] VISIT COUNT (12 MO.) 5 [facility] 2 [facility] TOTAL 7 NOTE: Visits indicate total known visits. ED/UCC VISIT TRACKING (12 MO.) 04/07/2025 20:31 [facility] Mendez [place] TYPE: Emergency COMPLAINT: - VOMITING 04/07/2025 02:05 [facility] Mendez [place] TYPE: Emergency COMPLAINT: - VOMITING 04/06/2025 16:31 [facility] DIAGNOSES: - Cannabis hyperemesis syndrome - vomiting 02/25/2025 18:44 [facility] [place] TYPE: Emergency DIAGNOSES: - Cyclical vomiting syndrome unrelated to migraine - GENERAL 12/20/2024 03:02 [facility] Mendez [place] TYPE: Emergency COMPLAINT: - VOMITING 11/01/2024 20:16 [facility] [place] TYPE: Emergency COMPLAINT: - VOMITING 09/09/2024 16:18 [facility] [place] TYPE: Emergency COMPLAINT: - VOMITING DIAGNOSES: - Gastro-esophageal reflux disease without esophagitis - Nausea with vomiting, unspecified - Other bed bug exterminator (current) drug therapy INPATIENT VISIT TRACKING (12 MO.) 12/20/2024 03:03 [facility] [place] TYPE: Observation COMPLAINT: - CANNABINOID HYPEREMESIS SYNDROME DIAGNOSES: - Acidosis, unspecified - Acute kidney failure, unspecified - Cannabis use, unspecified, uncomplicated - Elevated white blood cell count, unspecified - Generalized anxiety disorder - Interstitial emphysema - Melena - Nausea with vomiting, unspecified - Ulcer of esophagus without bleeding 11/02/2024 09:[address] [facility] [place] TYPE: Medical Surgical COMPLAINT: - PNEUMOMEDIASTEINUM, [...] Tobacco use - Unspecified severe protein-calorie malnutrition [email or web address]
[2025-04-07] MEDS ORDERED: SODIUM CHLORIDE 0.9% 500 ML IV PRN (21:00)
[2025-04-07 21:04] LABS: BASOPHILS 0.2 % (0.2-1.2); EOSINOPHILS 0 % (0.8-7.0); LYMPHOCYTES 3.5 % (21.8-53.1); MCH 29.3 PG (25.7-32.2); MCHC 34.9 g/dL (32.3-36.5); MCV 84.0 fL (79.0-92.2); MONOCYTES 6.1 % (5.3-12.2); NEUTROPHILS 89.7 % (34.0-67.9); RBC 5.49 M/uL (4.63-6.08)
[2025-04-07 21:14] LABS: SMEAR REVIEW BLOOD SEE COMMENTS
[2025-04-07 21:32] LABS: ALT (SGPT) 32.0 U/L (14-59); AST (SGOT) 24.0 U/L (15-37); GLOMERULAR FILTRATION RATE,EST 72.0 mL/min (>60); PROTEIN, TOTAL 9.1 g/dL (6.4-8.2); UREA NITROGEN 26.0 mg/dL (7-18)
[2025-04-07] MEDS ORDERED: LACTATED RINGER'S 1,000 ML IV ONE (22:00)
[2025-04-07 22:36] LABS: BLOOD/HGB, URINE MODERATE (Negative); KETONE, URINE TRACE (Negative); LEUK ESTERASE, URINE NEGATIVE (negative); NITRITE, URINE NEGATIVE (negative)
[2025-04-07 22:41] LABS: EPITHELIAL CELLS, URINE SQUAMOUS 1+ /lpf (0-1+)
[2025-04-07 22:42] LABS: BACTERIA, URINE RARE /hpf (negative); CASTS, URINE NONE SEEN \\lpf; CRYSTALS, URINE NONE SEEN (0-1+); REFLEX CULTURE, URINE No (No)
[2025-04-07 22:50] LABS: AMPHETAMINES, URINE NEGATIVE (NEGATIVE); BARBITURATES, URINE NEGATIVE (NEGATIVE); BENZODIAZEPINE, URINE NEGATIVE (NEGATIVE); CANNABINOID, URINE POSITIVE (NEGATIVE); COCAINE, URINE NEGATIVE (NEGATIVE); ECSTASY, URINE NEGATIVE (NEGATIVE); FENTANYL, URINE NEGATIVE (NEGATIVE); METHADONE, URINE NEGATIVE (NEGATIVE); OPIATES, URINE NEGATIVE (NEGATIVE); OXYCODONE, URINE NEGATIVE (NEGATIVE); PHENCYCLIDINE, URINE NEGATIVE (NEGATIVE)
[2025-04-07] MEDS ORDERED: LEVSIN-SL0.125 MG SL (23:57)
[2025-04-07] MEDS ORDERED: REGLAN10 MG PO (23:57)
[2025-04-08] MEDS ORDERED: DICYCLOMINE HCL 10 MG HOME.PACK PO ONE (00:05)
[2025-04-08 00:28] VITALS: BP 109/77
[2025-04-08] MEDS ORDERED: HALOPERIDOL2 MG PO (22:11)
[2025-04-08] MEDS ORDERED: CARAFATE1 GM PO (22:21)
[2025-04-11] MEDS ORDERED: ONDANSETRON ODT8 MG PO (08:01)
== END 2025-04-08 00:28 | disposition home or self-care (01) ==
LOC: ED 20:31
PROVIDERS: Family Medicine
DX: R11.16 Cannabis hyperemesis syndrome (principal); Z79.899 Other long term (current) drug therapy; K21.9 Gastro-esophageal reflux disease without esophagitis
CPT/HCPCS: 36415; 80053; 80307; 81001; 83735; 85025; 85060; 96361; 96374; 99284-25; J1790; J7040; J7121

== ENCOUNTER 2025-04-08 20:35 | Emergency (ER) | payer OTHER ==
[~2025-04-08] VITALS: Ht 175.3 cm; Wt 45.8 kg
[~2025-04-08 20:35] MED LIST changes: +LEVSIN-SL0.125 MG SL
--- OUTSIDE RECORDS SUMMARY | 2025-04-08 20:40 | XMS ---
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 [place] VISIT COUNT (12 MO.) 6 [facility] NOTE: Visits indicate total known visits. ED/UCC VISIT TRACKING (12 MO.) 04/08/2025 20:36 [facility] Mendez [place] TYPE: Emergency COMPLAINT: - VOMITING 04/07/2025 20:31 [facility] [place] TYPE: Emergency COMPLAINT: - VOMITING 04/07/2025 02:05 [facility] TYPE: Emergency COMPLAINT: - VOMITING 04/06/2025 16:31 [facility] TYPE: Emergency DIAGNOSES: - Cannabis hyperemesis syndrome - vomiting 02/25/2025 18:44 [facility] OR TYPE: Emergency DIAGNOSES: - Cyclical vomiting syndrome unrelated to migraine - GENERAL 12/20/2024 03:02 [facility] Mendez [place] TYPE: Emergency COMPLAINT: - VOMITING 11/01/2024 20:16 [facility] Mendez [place] TYPE: Emergency COMPLAINT: - VOMITING 09/09/2024 16:18 [facility] [place] [place] TYPE: [place] COMPLAINT: - VOMITING DIAGNOSES: - Gastro-esophageal reflux disease without esophagitis - Nausea with vomiting, unspecified - Other superintendent container terminal (current) drug therapy INPATIENT VISIT TRACKING (12 MO.) 12/20/2024 03:03 [facility] M[facility] [place] TYPE: Observation COMPLAINT: - CANNABINOID HYPEREMESIS SYNDROME DIAGNOSES: - Acidosis, unspecified - Acute kidney failure, unspecified - Cannabis use, unspecified, uncomplicated - Elevated white blood cell count, unspecified - Generalized anxiety disorder - Interstitial emphysema - Melena - Nausea with vomiting, unspecified - Ulcer of esophagus without bleeding 11/02/2024 09:28 [facility] COMPLAINT: - [...] Tobacco use - Unspecified severe protein-calorie malnutrition [email or web address]
[2025-04-08] MEDS ORDERED: LACTATED RINGER'S 1,000 ML IV ONE (20:45)
[2025-04-08] MEDS ORDERED: SUCRALFATE 1 GM TAB PO ONE (20:45)
[2025-04-08] MEDS ORDERED: LIDOCAINE & ANTACID 35 ML BTL PO ONE (20:45)
[2025-04-08] MEDS ORDERED: HALOPERIDOL LACTATE 5 MG/ML VIAL IV ONE (20:45)
[2025-04-08] MEDS ORDERED: HALOPERIDOL LACTATE 5 MG/ML VIAL IM ONE (21:00)
[2025-04-08] MEDS ORDERED: HALOPERIDOL2 MG PO (22:11)
[2025-04-08] MEDS ORDERED: CAPSAICIN 0.1% 56.6 GM TUBE TOP ONE (22:15)
[2025-04-08] MEDS ORDERED: CARAFATE1 GM PO (22:21)
[2025-04-08 22:42] VITALS: BP 134/83
[2025-04-11] MEDS ORDERED: ONDANSETRON ODT8 MG PO (08:01)
== END 2025-04-08 22:42 | disposition home or self-care (01) ==
LOC: ED 20:35
DX: R11.15 Cyclical vomiting syndrome unrelated to migraine (principal); K21.9 Gastro-esophageal reflux disease without esophagitis
CPT/HCPCS: 71045; 74018; 96372; 99284-25; J1200; J1630